=== PATIENT | male | born 1940 | race Caucasian/White ===

== ENCOUNTER → 2016-07-22 | Outpatient (CLI) | payer MEDICARE ==
[~2016-07-22] MED LIST: ASPI81 PO; DIGO0.12 PO; LISI10TA PO; METO25TA3 PO; MULT400T PO; PRAD150C PO; SIMV20TA PO; ZOCO10TA PO
[2016-07-22 10:52] LABS: AUTOMATED NEUTROPHIL # 4.9 TH/MM3 (1.8-7.7); BASOPHIL # 0.1 TH/MM3 (0-0.2); BASOPHIL % 1.1 % (0.0-2.0); EOSINOPHIL # 0.2 TH/MM3 (0-0.4); EOSINOPHIL % 3.3 % (0.0-4.0); HEMATOCRIT 40.8 % (39.0-51.0); HEMO FLAGS DIFF FINAL; LYMPH % 20.9 % (9.0-44.0); LYMPHOCYTE # 1.5 TH/MM3 (1.0-4.8); MEAN CELL VOLUME 93.8 FL (80.0-100.0); MEAN CORPUSCULAR HEMOGLOBIN 32.7 PG (27.0-34.0); MEAN CORPUSCULAR HGB CONC 34.9 % (32.0-36.0); MONO % 7.9 % (0.0-8.0); NEUT % 66.8 % (16.0-70.0); PLATELET COUNT 237 TH/MM3 (150-450); RED BLOOD COUNT 4.35 MIL/MM3 (4.50-5.90); RED CELL DISTRIBUTION WIDTH 12.4 % (11.6-17.2); WHITE BLOOD COUNT 7.4 TH/MM3 (4.0-11.0)
== END ==
LOC: CPRE 10:13
PROVIDERS: ATTEND Ophthalmology
DX: Z01.812 Encounter for preprocedural laboratory examination (principal); H26.9 Unspecified cataract
CPT/HCPCS: 36415; 85025

== ENCOUNTER → 2016-08-05 | Day surgery (SDC) | payer MEDICARE ==
--- NOTE | 2016-07-29 15:53 | MH ---
cc: YULI JIMENEZ DATE OF ADMISSION 08/05/2016 ADMISSION DIAGNOSIS Cataract right eye. HISTORY OF PRESENT ILLNESS This 76-year-old white male is coming through [facility] surgery for the purpose of a lens extraction of the right eye with intraocular lens implant under local anesthesia. He has noted decreasing visual acuity interfering with his daily activities and elected to have the above procedure. His best corrected visual acuity in room light is 20/40 -1 in the right eye and 20/25 -2 in the left. PAST MEDICAL HISTORY The patient has a history of: 1. Hypertension. 2. Cholesterol problems. 3. Atrial fibrillation which he had her 24 hours. 4. And a history of prostate cancer treated with radiation. PAST SURGICAL HISTORY Surgical history is that of: Elbow surgery. MEDICATIONS Daily medications include: 1. Digoxin. 2. Pradaxa. 3. Simvastatin. 4. Lisinopril. ALLERGIES NO KNOWN ALLERGIES. SOCIAL HISTORY The patient is a one pack per day smoker for 35 years and drinks 2 or 3 beers a day. FAMILY HISTORY Positive for mother with cataracts and macular degeneration. Brother also has cataract. REVIEW OF SYSTEMS HEAD: Patient denies severe headaches, dizziness or recent head injury. EARS: Patient denies hearing loss, ear pain, discharge or ringing in the ears. NOSE: Patient denies nasal discharge, obstruction or frequent colds. MOUTH AND THROAT: Patient denies soreness of the mouth or tongue, bleeding gums, trouble swallowing, changes in voice or sore throat. NECK: Patient denies neck pain or swelling, limitation of neck movement or neck injury. CARDIOPULMONARY SYSTEM: Patient denies shortness of breath, orthopnea, chronic cough, sputum production, hemoptysis, chest pain, wheezing, palpitations or light-headedness. GI SYSTEM: Patient denies poor appetite, nausea, vomiting, abdominal pain, ulcers, hemorrhoids or change in bowel habits. SYSTEM: The patient denies urinary frequency, dysuria, change in urine color. NERVOUS SYSTEM: Patient denies convulsions, vertigo, stroke, numbness or weakness. PHYSICAL EXAMINATION Blood pressure 112/72, pulse 58, respirations 12. HEAD: Normocephalic, atraumatic. NOSE: Without rhinorrhea. Throat clear. NECK: Supple. CHEST: Clear. HEART: Regular rhythm. ABDOMEN: Without tenderness. EXTREMITIES: Without edema. NEUROLOGICAL: Within normal limits. MENTAL STATUS: Within normal limits. EXAMINATION The patient's best corrected visual acuity in room light is 20/40 -1 in the right eye and 20/25 -2 in the left. Visual renee are full to confrontation testing. Extraocular muscle exam reveals full versions with orthophoria at distance and near. Pupils are 2 mm equal, round, reactive to light without afferent defect. Anterior segment examination reveals dermatochalasis of the eyelid skin. Conjunctival pinguecula are present. There are nuclear sclerotic and congenital nuclear opacifications in the lens greater in the right eye than the left. Intraocular pressures 15 in each eye by applanation tonometry. Dilated fundus exam revealed sharp disk with cup-to-disk ratio 0.3 bilaterally. The macula is clear bilaterally. A posterior vitreous detachment was noted in the left eye. The background of the right eye is within normal limits. IMPRESSION 1. Cataracts right eye greater than left. 2. Posterior vitreous detachment left eye. PLAN The plan is lens extraction of the right eye with intraocular lens implant under local anesthesia through [facility] surgery. Iris retractors may be used in this patient whose pupil does not dilate well. The patient has been cleared. He has been counseled as to the risks, benefits and alternatives and elected to proceed. I feel that cataract surgery will improve the quality of life and activities of daily living in this patient. MD BENJAMIN Krishnan/SAMY /3:10 PM /3:35 PM
[~2016-08-05] VITALS: Ht 175.3 cm; Wt 97.5 kg
[~2016-08-05] MED LIST changes: +ACETYLCHOLINE CHL OPHT SOLN 1:100 2 ML VIAL ONE; -ASPI81 PO; +CYCLOPENTOLATE HCL 1% OPHT SOLN 2 ML BTL ONE; +DICLOFENAC SOD 0.1% OPHT SOLN 2.5 ML BTL ONE; +GATIFLOXACIN 0.5% OPHT SOLN 2.5 ML BTL ONE; +HYALURONIDASE/LIDOCAINE/BUPIVACAINE 4.5 ML SYR RIGHT EYE ONE; +HYALURONIDASE/LIDOCAINE/BUPIVACAINE 6 ML SYR RIGHT EYE ONE; +PHENYLEPHRINE HCL 2.5% OPTH SOLN 2 ML BTL ONE; +PROPARACAINE HCL 0.5% OPHT SOLN 15 ML BTL ONE; +PROPARACAINE HCL 0.5% OPHT SOLN 15 ML BTL RIGHT EYE ONE; +PROPOFOL 200 MG/20 ML AMP ONE; +SODIUM CHLORID 0.9% 500 ML INJ 500 ML ONE; +TROPICAMIDE 1% OPHT SOLN 15 ML BTL ONE; +VISCOAT OPHT IRRIG SOLN 0.75 ML SYRINGE RIGHT EYE ONE; -ZOCO10TA PO
[2016-08-05 06:34] VITALS: BP 146/73; PULSE 54; RESP 16; TEMP 97.8; O2SAT 94
[2016-08-05] MEDS: CYCLOPENTOLATE HCL 1% OPHT SOLN 2 ML BTL RIGHT EYE SCH ×4 (06:38→06:47)
[2016-08-05] MEDS: TROPICAMIDE 1% OPHT SOLN 15 ML BTL RIGHT EYE SCH ×4 (06:38→06:47)
[2016-08-05] MEDS: GATIFLOXACIN 0.5% OPHT SOLN 2.5 ML BTL RIGHT EYE SCH ×4 (06:38→06:47)
[2016-08-05] MEDS: PHENYLEPHRINE HCL 2.5% OPTH SOLN 2 ML BTL RIGHT EYE SCH ×4 (06:38→06:47)
[2016-08-05] MEDS: DICLOFENAC SOD 0.1% OPHT SOLN 2.5 ML BTL RIGHT EYE SCH ×4 (06:38→06:47)
[2016-08-05 06:45] VITALS: PULSE 54
[2016-08-05 07:15] VITALS: PULSE 54
[2016-08-05] MEDS: EPINEPHrine HCL (1:1000) 1 MG/ML VIAL ONE ×2 (07:46→08:07)
[2016-08-05] MEDS: PILOCARPINE HCL 2% OPHT SOLN 15 ML BTL ONE ×2 (08:08→08:49)
[2016-08-05] MEDS: TOBRAMYCIN/DEXAMETHASONE OPTH OINT 3.5 GM TUBE ONE ×2 (08:09→08:49)
[2016-08-05 08:55] VITALS: TEMP 97.8
[2016-08-05 09:15] VITALS: BP 137/61; PULSE 61; RESP 14; O2SAT 99
--- NOTE | 2016-08-07 18:09 | MP ---
cc: YULI BROWN DATE OF SURGERY: 08/05/2016 PREOPERATIVE DIAGNOSIS: Cataract right eye. POSTOPERATIVE DIAGNOSIS: Cataract right eye. OPERATION: Extracapsular cataract extraction with posterior chamber intraocular lens implant by phacoemulsification, right eye. SURGEON: Yuli Brown M.D. ANESTHESIA: Local. COMPLICATIONS: None. INDICATIONS: See history and physical previously dictated. OPERATIVE PROCEDURE: The patient had adequate retrobulbar and eyelid blocks administered in the holding area and was brought to the operating room. The right eye was prepped and draped in the usual sterile ophthalmic manner. A lid speculum was inserted in the right eye. A 4-0 silk bridle suture was placed through the conjunctiva near the superior rectus muscle and it was tagged to the drape. A fornix-based conjunctival flap was prepared spanning approximately 5 mm in width. Hemostasis was obtained with wet-field cautery. A 3.5 mm groove was made 1 mm from the limbus and dissected up to the limbus in the form of a scleral pocket incision. A stab incision was then made at the 2 o'clock position. Viscoelastic was injected into the anterior chamber. In order to maintain an adequately dilated pupil, it was elected to use iris retractors in this case. Stab incisions were made at the 1 o'clock, 3 o'clock, 5 o'clock, 8 o'clock and 10 o'clock positions. Iris retractors were then inserted through the stab incisions in the peripheral cornea and positioned to enlarge the size of the pupil. The anterior chamber was entered with a 2.75 mm keratome through the scleral pocket incision. A 360 degree continuous curvilinear capsulorrhexis was then performed. Hydrodissection was utilized to divide the nucleus into inner and outer components and to separate the cortex from the capsule. Phacoemulsification was then utilized to remove the nucleus. The outer nuclear layer was removed with irrigation and aspiration and short bursts of ultrasound as necessary. The cortex was removed with the irrigation-aspiration handpiece. The posterior capsule was polished with the capsule polisher. Viscoelastic was injected into the capsular bag. The intraocular lens was inspected and found to be in good condition. The lens utilized was a Oskar, model SA 60 AT with a power of +21.5 diopters. The lens was inserted into the capsular bag. The five iris retractors were removed. The viscoelastic in the anterior chamber was then removed with the irrigation-aspiration hand piece. Viscoelastic was also removed from beneath the intraocular lens. The anterior chamber was filled with Miochol-E through the stab incision and pressurized. The wound was closed with one interrupted 10-0 nylon suture. The wound was checked for leaks and there were none. The 4-0 bridle suture was removed. The conjunctival flap was brought down over the wound and secured with cautery. Pilocarpine 2% eye drops were instilled topically. The lid speculum was removed. TobraDex ophthalmic ointment was applied. The eye was double patched and shielded. The patient tolerated the procedure well and left the Operating Room in satisfactory condition. MD BENJAMIN Krishnan/olvin /9:04 AM /6:05 PM
== END | disposition home or self-care (01) ==
LOC: CSDC 05:54
PROVIDERS: ATTEND Ophthalmology
DX: H25.811 Combined forms of age-related cataract, right eye (principal); I10 Essential (primary) hypertension; I48.91 Unspecified atrial fibrillation; Z85.46 Personal history of malignant neoplasm of prostate; Z83.518 Family history of other specified eye disorder
CPT/HCPCS: 00142; 66984; J0171; J7040; V2632